=== PATIENT | male | born 1950 | race Caucasian/White ===

== ENCOUNTER 2019-03-10 07:35 | Outpatient (CLI) | payer MEDICARE, BC ==
--- NOTE | 2019-03-14 08:56 | PFT ---
PATIENT HISTORY: HEIGHT: 68.5 IN WEIGHT: 260 SMOKER: NEVER HOW LONG: NA PACKS PER DAY: NA PRODUCTIVE COUGH: LUNG DISEASE: PHYSICIAN INTERPRETATION PFT data: 03/10/19 FEV1 is mildly reduced, FVC is reduced. There is significant change in FEV1 after Bronchodilatation. Maximum Ventilatory Volume is profoundly reduced. IMPRESSION: A moderate obstructive impairment is present. There appear to be some improvement after Bronchodilatation. The Maximum Ventilatory Volume is inappropriate low indicating poor patient effort or neuromuscular disease. The patent could not perform DLCO or Lung volumes secondary to his dementia. Therefore clinical correlation is recommended in interpreting this result. Carpenter Packing: PETR Grounds/Maintenance Specialist: PETR ANGUIANO
== END 2019-03-10 07:36 | disposition home or self-care (01) ==
LOC: CP 07:35
PROVIDERS: ATTEND Family Medicine
DX: R06.2 Wheezing (principal)
CPT/HCPCS: 94060

== ENCOUNTER 2019-03-28 12:50 | Outpatient (CLI) | payer MEDICARE, BC ==
[~2019-03-28 12:50] MED LIST: ISOVUE-370 76%-LOCM 1 ML ONE
--- NOTE | 2019-03-28 14:09 | CT ---
CT CHEST WITH CONTRAST CLINICAL INDICATION: COPD and cough. COMPARISON: None FINDINGS: Aorta: Mild vascular calcifications are seen in the thoracic aorta as well as involving the coronary arteries. The thoracic aorta is normal in caliber without evidence of an aortic dissection. Lungs: A tiny less than 4 mm pulmonary nodule is seen in the posterior aspect right upper lobe (image 30, series 3). No additional pulmonary nodule or mass is seen. There are minimal nonspecific groundglass densities in the anterior aspect right upper lobe as well as in the anterior aspect right middle lobe which are nonspecific. Mild parenchymal density is seen within the lingula which could be related to either atelectasis or developing area of pneumonitis. Follow-up evaluation is recommend ed. There is linear atelectasis versus scarring at the left lung base. No pleural effusion is identified. A calcified granuloma is seen in the right middle lobe which may actually represent a small pleural-b ased calcification. Mediastinum: There is no evidence of lymphadenopathy. Thyroid gland: Normal CT appearance. Osseous structures: Mild degenerative changes are seen in the thoracic spine. Chest wall: No abnormality visualized. Upper abdomen: Very small hiatal hernia is present. A peripherally calcified splenic artery aneurysm is visualized measuring 1.5 cm. IMPRESSION: 1. Patchy parenchymal density in the lingula which could be related to atelectasis versus pneumonitis . Follow-up evaluation is recommended to ensure resolution. 2. Minimal nonspecific groundglass densities in the right upper lobe. This could be on the basis of v olume loss or alveolitis. 3. Noncalcified pulmonary nodule measuring less than 4 mm in the right upper lobe. 4. Peripherally calcified splenic artery aneurysm. 5. Very small hiatal hernia.
== END 2019-03-28 12:51 | disposition home or self-care (01) ==
LOC: BICCT 12:50
PROVIDERS: ATTEND Family Medicine
DX: J44.9 Chronic obstructive pulmonary disease, unspecified (principal); R91.8 Other nonspecific abnormal finding of lung field; I72.8 Aneurysm of other specified arteries; K44.9 Diaphragmatic hernia without obstruction or gangrene
CPT/HCPCS: 71260; 82565; Q9966

== ENCOUNTER 2019-05-25 09:12 | Outpatient (CLI) | payer MEDICARE, BC ==
--- NOTE | 2019-05-25 09:27 | RAD ---
EXAM: Chest 2 views: HISTORY: Dyspnea COMPARISON: 11/15/2018 FINDINGS: There is a normal-sized cardiomediastinal silhouette. There is no evidence of consolidation, mass, or pleural effusion. The bones are unremarkable. IMPRESSION: No evidence of acute cardiopulmonary disease
== END 2019-05-25 09:13 | disposition home or self-care (01) ==
LOC: RAD 09:12
PROVIDERS: ATTEND Internal Medicine
DX: R06.00 Dyspnea, unspecified (principal)
CPT/HCPCS: 71046

== ENCOUNTER 2019-07-12 09:49 | Outpatient (CLI) | payer MEDICARE, BC ==
--- NOTE | 2019-07-12 10:20 | RAD ---
EXAM: Two views chest PROVIDED CLINICAL HISTORY: Dyspnea COMPARISON: 05/25/2019 FINDINGS: Cardiac silhouette and pulmonary vasculature are within normal limits. The lungs are clear. The osse ous structures have a normal appearance. IMPRESSION: No acute cardiopulmonary process.
== END 2019-07-12 09:50 | disposition home or self-care (01) ==
LOC: RAD 09:49
PROVIDERS: ATTEND Internal Medicine Critical Care Medicine
DX: R06.00 Dyspnea, unspecified (principal)
CPT/HCPCS: 71046

== ENCOUNTER 2019-09-07 08:32 | Outpatient (CLI) | payer MEDICARE, BC ==
--- NOTE | 2019-09-07 09:05 | RAD ---
PA AND LATERAL VIEWS CHEST: Date: 09/07/2019 HISTORY: Dyspnea. COMPARISON: 07/12/2019. FINDINGS: The heart size is normal. The lungs are well expanded without lobar consolidation, pneumothoraces, or pleural effusions. No acute osseous abnormalities are seen. IMPRESSION: No radiographic evidence of acute cardiopulmonary process. POS: [facility]
== END 2019-09-07 08:33 | disposition home or self-care (01) ==
LOC: RAD 08:32
PROVIDERS: ATTEND Internal Medicine Critical Care Medicine
DX: R06.00 Dyspnea, unspecified (principal)
CPT/HCPCS: 71046

== ENCOUNTER 2019-11-15 12:43 | Outpatient (CLI) | payer MEDICARE, BC ==
--- NOTE | 2019-11-15 13:46 | CT ---
CT chest noncontrast HISTORY: Lung nodule. Infiltrate. Follow-up. COMPARISON: 03/28/2019. FINDINGS: The tiny nodule subpleural nodule within the posterior aspect of the right upper lobe is st able. Minimal scarring at each posterior lung base has progressed slightly. No lobar consolidation. No new lesions. No pleural fluid or pneumothorax. There is calcification within the coronary arteries and within a 1. 2 cm splenic artery aneurysm. Small hiatal hernia. Right posterolateral disc protrusions of the thoracic spine are apparent at the T6-7 and T7-8 levels. There are degenerative changes throughout the thoracic spine. IMPRESSION : Stable CT appearance of the tiny right upper lobe subpleural nodule. No new masses. Slight interval increase in parenchymal scarring at each posterior lung base. Atherosclerosis. Small hiatal hernia. Degenerative changes thoracic spine, with right posterolateral disc protrusions at the T6-7 and T7-8 levels.
== END 2019-11-15 12:44 | disposition home or self-care (01) ==
LOC: CT 12:43
PROVIDERS: ATTEND Internal Medicine Critical Care Medicine
DX: R91.1 Solitary pulmonary nodule (principal); J98.4 Other disorders of lung; K44.9 Diaphragmatic hernia without obstruction or gangrene; M47.814 Spondylosis without myelopathy or radiculopathy, thoracic region; M51.24 Other intervertebral disc displacement, thoracic region; I25.10 Atherosclerotic heart disease of native coronary artery without angina pectoris
CPT/HCPCS: 71250

== ENCOUNTER 2020-09-03 11:05 | Outpatient (CLI) | payer MEDICARE, BC | END 2020-09-03 11:06 | disposition home or self-care (01) | LOC: BICRAD 11:05 | PROVIDERS: ATTEND Internal Medicine Critical Care Medicine | DX: R06.00 Dyspnea, unspecified (principal) | CPT/HCPCS: 71046 ==

== ENCOUNTER 2023-07-28 10:35 | Outpatient (CLI) | payer MEDICARE, BC | END 2023-07-28 10:36 | disposition home or self-care (01) | LOC: SCSRAD 10:35 | PROVIDERS: ATTEND Family Medicine | DX: M25.471 Effusion, right ankle (principal); M79.89 Other specified soft tissue disorders ==